=== PATIENT | female | born 1995 | race Caucasian/White ===

== ENCOUNTER 2020-03-15 08:08 | Outpatient (REF) | payer OTHER, SELFPAY ==
[2020-03-15 09:17] LABS: COVID-19 Test Negative (Negative)
== END 2020-03-15 08:09 | disposition home or self-care (01) ==
LOC: HO.LAB 08:08
PROVIDERS: Visit Provider Internal Medicine
DX: Z20.828 Contact with and (suspected) exposure to other viral communicable diseases (principal)
CPT/HCPCS: 87635

== ENCOUNTER 2020-03-19 15:04 | Outpatient (REF) | payer OTHER, SELFPAY ==
[2020-03-19 15:22] LABS: COVID-19 Test Negative (Negative)
== END 2020-03-19 15:05 | disposition home or self-care (01) ==
LOC: HO.LAB 15:04
PROVIDERS: Visit Provider Internal Medicine
DX: Z20.828 Contact with and (suspected) exposure to other viral communicable diseases (principal)
CPT/HCPCS: 87635

== ENCOUNTER 2021-03-12 15:36 | Outpatient (REF) | payer OTHER, SELFPAY ==
--- NOTE | ~2021-03-12 | US_ITS ---
EXAMINATION: US RETROPERITONEAL LIMITED (RENAL ONLY) CLINICAL INFORMATION: Calculus of kidney. COMPARISON: CT abdomen and pelvis without contrast dated 08/15/2019. Renals only ultrasound dated 08/08/2019. TECHNIQUE: Real-time imaging of the kidneys. FINDINGS: RIGHT KIDNEY: 10.0 x 4.2 x 5.3 cm (SAG x AP x TRV). The kidney is normal in size, contour, and echogenicity. Renal cortical thickness is normal. No focal parenchymal lesions or hydronephrosis. There is an echogenic stone midpole measuring 0.5 x 0.3 x 0.5 cm there is a small echogenic focus with twinkling as well. LEFT KIDNEY: 11.5 x 4.8 x 4.4 cm (SAG x AP x TRV). The kidney is normal in size, contour, and echogenicity. Renal cortical thickness is normal. No calculi or focal parenchymal lesions. No hydronephrosis. There are multiple echogenic foci seen throughout with no twinkle artifact observed. US/US renal BI IMPRESSION: Multiple bilateral renal echogenic foci. Nonobstructive echogenic stone midpole right kidney.
== END 2021-03-12 15:37 | disposition home or self-care (01) ==
LOC: HO.US 15:36
PROVIDERS: Visit Provider Urology
DX: N20.0 Calculus of kidney (principal)
CPT/HCPCS: 76775

== ENCOUNTER 2021-10-29 11:09 | Outpatient (REF) | payer OTHER, SELFPAY ==
--- NOTE | ~2021-10-29 | US_ITS ---
EXAMINATION: US RETROPERITONEAL LIMITED (RENAL ONLY) CLINICAL INFORMATION: Calculus of kidney. COMPARISON: US renal 03/12/2021. CT abdomen pelvis 08/15/2019.US renal 08/08/2019. TECHNIQUE: Real-time imaging of the kidneys. FINDINGS: RIGHT KIDNEY: 11.3 x 4.1 x 4.7 cm (SAG x AP x TRV). The kidney is normal in size, contour, and echogenicity. Renal cortical thickness is normal. No calculi or focal parenchymal lesions. No hydronephrosis. LEFT KIDNEY: 10.7 x 5.1 x 3.9 cm (SAG x AP x TRV). The kidney is normal in size, contour, and echogenicity. Renal cortical thickness is normal. No calculi or focal parenchymal lesions. No hydronephrosis. Previously identified small bilateral renal stones are not appreciated on the current exam. US/US renal BI IMPRESSION: Normal renal ultrasound. No stone appreciated..
== END 2021-10-29 11:10 | disposition home or self-care (01) ==
LOC: HO.US 11:09
DX: N20.0 Calculus of kidney (principal)
CPT/HCPCS: 76775

== ENCOUNTER → 2022-11-24 13:11 | Outpatient (BNVA) | payer OTHER, SELFPAY | PROVIDERS: Visit Provider Internal Medicine | DX: Z13.89 Encounter for screening for other disorder (principal) | CPT/HCPCS: 70450; 70486; 99204 ==

== ENCOUNTER → 2022-11-27 09:10 | Outpatient (BNVA) | payer OTHER, SELFPAY | PROVIDERS: Visit Provider Internal Medicine | DX: Z13.89 Encounter for screening for other disorder (principal) | CPT/HCPCS: 99213 ==

== ENCOUNTER 2023-06-25 14:59 | Outpatient (AMB) | payer OTHER, SELFPAY ==
--- NOTE | 2023-06-25 15:01 | MHC.PC.OV ---
Vital Signs 06/25/23 15:05 Height 5 ft 5.75 in Weight 139 lb BMI 22.6 BP 118/71 Blood Pressure Location Lt brachial Position Sitting Pulse 71 Pulse Source Pulse Oximeter Pulse Oximetry (%) 100 Oxygen Delivery Method Room Air Intake Visit Reasons: est care Intake Note: Patient is here for Primary care doctor, has not seen a doctor since Covid. Is last menstrual period known: Yes Last menstrual period: 07/06/23 Allergies erythromycin base [ERYTHROMYCIN BASE] Allergy (Unknown, Verified 06/25/23 15:07) VOMITING loratadine [From CLARITIN] Allergy (Unknown, Verified 06/25/23 15:07) HALLUCINATION Tobacco use date assessed: 06/25/23 Dental Screening Dental Screen Date: 06/25/23 Did you have a dental visit in the last 12 months?: No Did you have a dental problem in the last 6 months where you did not have access to dental care?: No Was dental information given to patient?: Patient has dentist HPI est care HPI Details New patient Prior PCP:?[facility] Last office visit/CPE: Acute issue(s): Est. Care Eczema PMHx: Eczema, Allergies, Nasal fracture SurgHx: Nasal surgery, [place] teeth FHx: Mom: Fibroids. Dad: Pulmonary embolism. GM: Breast CA SocHx: Nonsmoker of cigs. MJ x 10 years. EtOH occasional. PFSH Medical History (Updated 06/25/23 @ 15:35 by Serafin Rehman) Eczema Sinusitis Renal calculi Surgical History (Updated 06/25/23 @ 15:12 by Afshan Emmanuel CMA) History of nasal surgery Social History (Updated 06/25/23 @ 15:15 by Afshan Emmanuel CMA) Household Members: Family Housing: House Are you a primary primary care pediatrician to a significant other at home: No Do you presently have visiting nurse or other home services: No 75 years or older and lives alone: No Alcohol intake: current Comment: socially Patient Tobacco Use Status: Never used Tobacco e-Cigarette/Vaping Use: Never Used Special eryn needs: No service: No Current occupational status: employed Current occupation: [employer] Cognitive needs: No Hearing needs: No Vision needs: Yes (glasses) Female Reproductive History Menstrual Date of last menstrual period: 07/06/23 Questionnaire PHQ-9 Over the last 2 weeks, how often have you been bothered by any of the following problems? 1. Little interest or pleasure in doing things: not at all 2. Feeling down, depressed, or hopeless: not at all 3. Trouble falling or staying asleep, or sleeping too much: several days 4. Feeling tired or having little energy: several days 5. Poor appetite or overeating: not at all 6. Feeling bad about yourself - or that you are a failure or have let yourself or your family down: not at all 7. Trouble concentrating on things, such as reading the newspaper or watching television: several days 8. Moving or speaking so slowly that other people could have noticed. Or the opposite - being so fidgety or restless that you have been moving around a lot more than usual: not at all 9. Thoughts that you would be better off or of hurting yourself in some way: not at all Total score: 3 Source: Developed by Drs. Vinay Kerr, Marychuy Cao, James Ashley and colleagues, with an educational dominique from [employer]. Thrive Questionnaire Date Thrive assessed: 06/25/23 I am a: Patient What is your living situation today?: I have a steady place to live Within the past 12 months, did the food you bought not last and you didn't have the money to get more?: Never true Within the past 12 months, did you worry whether your food would run out before you got money to buy more?: Never true Do you have trouble paying for medicines?: No Do you have trouble getting transportation to medical appointments?: No Do you have trouble paying your heating and electricity bill?: No Do you have trouble taking care of your child, family member or friend?: No Do you have trouble with day-to-day activities such as bathing, preparing meals, shopping, managing finances, etc.?: No Are you currently unemployed and looking for a job?: No Are you interested in more education?: No THRIVE Score: 0 AUDIT C Alcohol Use Questionnaire (AUDIT-C) 1. How often do you have a drink containing alcohol?: Monthly or less 2. How many drinks containing alcohol do you have on a typical day when you are drinking?: 1 or 2 3. How often do you have six or more drinks on one occasion?: Never Total Score: 1 DEMETRIUS-7 AMB Questionnaire DEMETRIUS-7 Date DEMETRIUS - 7 assessed: 06/25/23 Feeling nervous, anxious, or on edge: 2 = More than half the days Not being able to stop or control worryin = Not at all Worrying too much about different things: 0 = Not at all Trouble relaxin = Not at all Being so restless that it is hard to sit still: 0 = Not at all Becoming easily annoyed or irritable: 0 = Not at all Feeling afraid as if something awful might happen: 0 = Not at all Total DEMETRIUS-7 score (0-4 normal; 5-9 mild; 10-14 moderate; 15-21 severe): 2 Source: Developed by Drs. Vinay Kerr, Marychuy Cao, James Ashley and colleagues, with an educational dominique from [employer]. Review of Systems Const Denies chills, Denies fatigue, Denies fever(s), Denies headache(s) and Denies weakness ENT Denies dizziness and Denies headache(s) Card Denies chest pain, Denies lightheadedness, Denies dyspnea and Denies other (Palpitations) Resp Denies cough, Denies dyspnea, Denies wheezing and Denies other ( shortness of breath) Musc Denies numbness and Denies tingling Neuro Denies dizziness, Denies headache(s), Denies numbness, Denies tingling, Denies paresthesias and Denies weakness Psych Denies anxiety and Denies depression Endo Denies fatigue Aller/Immun Denies wheezing Physical exam (Primary Care) Vital Signs: Last Vital Signs Pulse 71 06/25/23 15:05 BP 118/71 06/25/23 15:05 Pulse Ox 100 06/25/23 15:05 Oxygen Delivery Method Room Air 06/25/23 15:05 BMI result Body Mass Index 22.6 Tobacco/Smoking Status: Tobacco use Status Tobacco use date assessed 06/25/23 06/25/23 15:19 Patient Tobacco Use Status Never used Tobacco 06/25/23 15:19 e-Cigarette/Vaping Use Never Used 06/25/23 15:19 PHQ-9: PHQ-9 Score PHQ-9: Total score 3 06/25/23 15:21 Thrive Assessment: Date of Thrive Assessment Date Thrive assessed 06/25/23 06/25/23 15:19 Const General: no acute distress and well developed Nutritional Appearance: well nourished Orientation/consciousness: patient oriented x3 HENMT Head: Yes normocephalic and Yes atraumatic Eyes General: appearance normal, both eyes and all related structures Pupils: Equal, round and reactive pupils present EOM: EOMs intact bilaterally Resp Effort & Inspection: normal respiratory effort Auscultation: clear to auscultation bilaterally Cardio Rate: regular rate Rhythm: regular rhythm Heart sounds: S1 normal heart sound present, S2 normal heart sound present, no gallops, no murmurs and no rubs Neuro General: patient oriented x3 and gait normal Cranial nerves: Yes Equal, round and reactive pupils present Psych Affect: normal affect Assessment and Plan Assessment & Plan (1) Eczema: Code(s): L30.9 - Dermatitis, unspecified Plan: Eczema?with?rash?on?fairly?extensive?areas?of?skin?on?trunk She?notes?that?she?also?gets?a?rash?on?her?face?sometimes Will?give?her?a?script?for?betamethasone?for?flare-ups?on?trunk?and?other?areas?but?avoid?on?face-she?can?use?OTC?hydrocortisone?on?face,?away?from?eyes Use?a?moisturizer?with?no?dyes?or?perfumes,?liberally Maintain?good?hydration She?can?use?a?daytime?antihistamine?as?recommended?by?her?cancer genetics assistant (2) Allergies: Code(s): T78.40XA - Allergy, unspecified, initial encounter Plan: Continue?antihistamine?and?follow-up?with?allergy?medicine?as?recommended (3) Laboratory exam ordered as part of routine general medical examination: Code(s): Z00.00 - Encounter for general adult medical examination without abnormal findings Plan: Check?labs Orders: Orders Lipid Panel Today Z00.00 - Encounter for general adult medical examination without abnormal findings TSH reflex Free T4 Today Z00.00 - Encounter for general adult medical examination without abnormal findings UA and rflx microscopic Today Z00.00 - Encounter for general adult medical examination without abnormal findings Microalbumin, Random (w Creat) Today I10 - Essential (primary) hypertension HIV Ab/Ag Today Z11.3 - Encounter for screening for infections with a predominantly sexual mode of transmission Syphilis Screen Today Z11.3 - Encounter for screening for infections with a predominantly sexual mode of transmission Complete Blood Count Auto Diff Today T78.40XA - Allergy, unspecified, initial encounter, Z00.00 - Encounter for general adult medical examination without abnormal findings CRP High Sensitivity Today T78.40XA - Allergy, unspecified, initial encounter Comprehensive [place]. Panel Fast Today Z00.00 - Encounter for general adult medical examination without abnormal findings CT NG by PCR Today Z11.3 - Encounter for screening for infections with a predominantly sexual mode of transmission Hepatitis B,C Profile Today Z11.3 - Encounter for screening for infections with a predominantly sexual mode of transmission Erythrocyte Sedimentation Rate Today T78.40XA - Allergy, unspecified, initial encounter Medications: New betamethasone valerate 0.1% 1 appl topical BID PRN 60 grams 1RF skin irritation 14 days Coding Level of Care Code New Pt Level 4 (34848) Diagnoses Eczema L30.9 Allergies T78.40XA Laboratory exam ordered as part of routine general medical examination Z00.00
[2023-06-25 15:05] VITALS: BP 118/71; PULSE 71; O2SAT 100; BMI 22.6
== END 2023-06-25 15:40 | disposition home or self-care (01) ==
PROVIDERS: PCP Hospitalist; Visit Provider Family Medicine
DX: L30.9 Dermatitis, unspecified (principal); T78.40XA Allergy, unspecified, initial encounter; Z00.00 Encounter for general adult medical examination without abnormal findings
CPT/HCPCS: 99204